=== PATIENT | female | born 1955 | race Two or more races ===

== ENCOUNTER 2017-03-21 14:07 | Outpatient (CLI) | payer OTHER | END 2017-03-21 14:14 | disposition home or self-care (01) | LOC: MAMO-SONO 14:07 | DX: N60.09 Solitary cyst of unspecified breast (principal); Z12.31 Encounter for screening mammogram for malignant neoplasm of breast ==

== ENCOUNTER → 2017-06-01 | Outpatient (CLI) | payer OTHER | END | disposition home or self-care (01) | LOC: RAD 08:47 | DX: M54.5 Low back pain (principal) ==

== ENCOUNTER 2018-06-02 12:35 | Outpatient (CLI) | payer OTHER | END 2018-06-02 12:43 | disposition home or self-care (01) | LOC: MAMO-SONO 12:35 | DX: N60.12 Diffuse cystic mastopathy of left breast (principal) ==

== ENCOUNTER → 2018-06-02 | Outpatient (CLI) | payer OTHER | END | disposition home or self-care (01) | LOC: NUCLEAR 05-28 10:30 | DX: M81.0 Age-related osteoporosis without current pathological fracture (principal) ==

== ENCOUNTER 2019-08-18 10:04 | Outpatient (CLI) | payer OTHER | END 2019-08-18 10:16 | disposition home or self-care (01) | LOC: MAMO-SONO 10:04 | PROVIDERS: ATTEND General Practice | DX: Z12.31 Encounter for screening mammogram for malignant neoplasm of breast (principal); N63.10 Unspecified lump in the right breast, unspecified quadrant; N63.20 Unspecified lump in the left breast, unspecified quadrant; N60.11 Diffuse cystic mastopathy of right breast ==

== ENCOUNTER 2020-10-04 13:42 | Outpatient (CLI) | payer OTHER | END 2020-10-04 13:44 | disposition home or self-care (01) | LOC: MAMO-SONO 13:42 | PROVIDERS: ATTEND Obstetrics & Gynecology | DX: N60.11 Diffuse cystic mastopathy of right breast (principal); N60.12 Diffuse cystic mastopathy of left breast; Z12.31 Encounter for screening mammogram for malignant neoplasm of breast ==

== ENCOUNTER 2020-10-04 14:30 | Outpatient (CLI) | payer OTHER | END 2020-10-04 14:38 | disposition home or self-care (01) | LOC: NUCLEAR 14:30 | PROVIDERS: ATTEND Obstetrics & Gynecology | DX: M81.0 Age-related osteoporosis without current pathological fracture (principal) ==

== ENCOUNTER 2021-06-19 13:33 | Outpatient (CLI) | payer OTHER | END 2021-06-19 13:45 | disposition home or self-care (01) | LOC: RAD 13:33 | DX: M99.03 Segmental and somatic dysfunction of lumbar region (principal); M99.04 Segmental and somatic dysfunction of sacral region; M99.05 Segmental and somatic dysfunction of pelvic region; M25.552 Pain in left hip ==

== ENCOUNTER 2021-06-27 07:15 | Outpatient (CLI) | payer OTHER | END 2021-06-27 16:56 | disposition home or self-care (01) | LOC: MRI 07:15 | PROVIDERS: ATTEND Orthopaedic Surgery | DX: M25.552 Pain in left hip (principal) | CPT/HCPCS: 73721 ==

== ENCOUNTER 2021-11-21 09:40 | Outpatient (CLI) | payer OTHER | END 2021-11-21 09:42 | disposition home or self-care (01) | LOC: MAMO-SONO 09:40 | PROVIDERS: ATTEND Obstetrics & Gynecology | DX: N60.11 Diffuse cystic mastopathy of right breast (principal); N60.12 Diffuse cystic mastopathy of left breast; Z12.31 Encounter for screening mammogram for malignant neoplasm of breast ==

== ENCOUNTER 2022-03-05 09:52 | Outpatient (CLI) | payer OTHER | END 2022-03-05 09:57 | disposition home or self-care (01) | LOC: RAD 09:52 | PROVIDERS: ATTEND Orthopaedic Surgery | DX: M25.561 Pain in right knee (principal); M25.562 Pain in left knee ==

== ENCOUNTER 2022-03-07 08:28 | Outpatient (CLI) | payer OTHER | END 2022-03-07 08:34 | disposition home or self-care (01) | LOC: MRI 08:28 | PROVIDERS: ATTEND Orthopaedic Surgery | DX: S83.201A Bucket-handle tear of unspecified meniscus, current injury, left knee, initial encounter (principal) | CPT/HCPCS: 73721 ==

== ENCOUNTER 2022-03-30 09:21 | Outpatient (CLI) | payer OTHER | END 2022-03-30 09:27 | disposition home or self-care (01) | LOC: RAD 09:21 | PROVIDERS: ATTEND Orthopaedic Surgery | DX: R07.9 Chest pain, unspecified (principal) ==

== ENCOUNTER 2023-02-01 07:34 | Outpatient (CLI) | payer OTHER | END 2023-02-01 07:41 | disposition home or self-care (01) | LOC: SONOGRAMA 07:34 | DX: R10.9 Unspecified abdominal pain (principal) ==